=== PATIENT | female | born 1995 | race American Indian/Alaskan Native ===

== ENCOUNTER 2021-07-29 23:13 | Emergency (ER) | payer OTHER ==
[2021-07-29 23:22] VITALS: BP 100/57
[2021-07-30] MEDS ORDERED: traMADol 50 MG TAB PO ONE (02:14)
[2021-07-30] MEDS ORDERED: LIDOCAINE (1%) 10 MG/1 ML VIAL 20 ML MDV INFILTRATI ONE (02:14)
[2021-07-30] MEDS ORDERED: TETANUS,DIPH,PERTUSS(ACELL) VACCINE 0.5 ML SYRINGE IM ONE (02:14)
--- NOTE | 2021-07-30 02:59 | Emergency Department Report ---
ED General Adult HPI - General Chief complaint: Wound/Laceration Stated complaint: FINGER CUT Time Seen by Provider: 07/30/21 02:11 Source: patient Mode of arrival: Ambulatory Limitations: No Limitations - History of Present Illness Initial comments: Patient is a 26-year-old female who presents for laceration to left lateral index finger. Patient states she was attempting to remove received from an avocado and accidentally stabbed her hand with a kitchen knife. Bleeding was controlled by direct pressure applied at home. There is no nerve muscle or tendon damage. There is no numbness paralysis or tingling. Patient drove self to ED patient alert oriented x3 with no acute distress patient denies other injuries. Patient states last tetanus shot 3 years ago. Pain rated as 4/10. Exacerbated by movement and palpation. Relieved by nothing tried. Severity scale (0 -10): 3 - Related Data Previous Rx's Medication Instructions Recorded Last Taken Type traMADoL [Ultram] 50 mg PO Q8HR PRN #9 tablet 07/30/21 Unknown Rx Allergies Allergy/AdvReac Type Severity Reaction Status Date / Time No Known Allergies Allergy Verified 07/30/21 02:43 ED Review of Systems ROS: Stated complaint: FINGER CUT Other details as noted in HPI Constitutional: denies: chills, fever Eyes: denies: eye pain, eye discharge, vision change ENT: denies: ear pain, throat pain Respiratory: denies: cough, shortness of breath, wheezing Cardiovascular: denies: chest pain, palpitations Endocrine: no symptoms reported Gastrointestinal: denies: abdominal pain, nausea, diarrhea Genitourinary: denies: urgency, dysuria, discharge Musculoskeletal: other (Laceration left index finger) Skin: as per HPI, other (Laceration to left index finger medial) Neurological: as per HPI Psychiatric: denies: anxiety, depression Hematological/Lymphatic: denies: easy bleeding, easy bruising ED Past Medical Hx - Medications Home Medications: Home Medications Medication Instructions Recorded Confirmed Last Taken Type traMADoL [Ultram] 50 mg PO Q8HR PRN #9 tablet 07/30/21 Unknown Rx ED Physical Exam - General Limitations: No Limitations General appearance: alert, in no apparent distress - Head Head exam: Present: normocephalic, normal inspection - Eye Eye exam: Present: normal appearance, EOMI Pupils: Present: normal accommodation - ENT ENT exam: Present: mucous membranes moist - Neck Neck exam: Present: normal inspection - Respiratory Respiratory exam: Present: normal lung sounds bilaterally. Absent: wheezes - Cardiovascular Cardiovascular Exam: Present: regular rate, normal rhythm, normal heart sounds. Absent: systolic murmur, diastolic murmur, rubs, gallop - GI/Abdominal GI/Abdominal exam: Present: soft, normal bowel sounds. Absent: distended, tenderness - Rectal Rectal exam: Present: deferred - Extremities Exam Extremities exam: Present: full ROM, normal capillary refill - Expanded Upper Extremity Exam Left Hand Wrist exam: Present: full ROM, tenderness, laceration (Left index finger medial no nerve muscle or tendon damage). Absent: swelling, ecchymosis, deformity, crepidus, dislocation, erythema, amputation, nail avulsion, subungual hematoma Neuro motor exam: Present: wrist extension intact, thumb opposition intact, thumb IP flexion intact, thumb adduction intact, fingers 2-5 abduction intact Neurosensory exam: Present: radial nerve intact - Back Exam Back exam: Present: normal inspection, full ROM. Absent: CVA tenderness (R), CVA tenderness (L) - Neurological Exam Neurological exam: Present: alert, oriented X3, CN II-XII intact, reflexes normal. Absent: motor sensory deficit - Expanded Neurological Exam Expanded Patient oriented to: Present: person, place, time Speech: Present: fluid speech Motor strength exam: RUE: 5, LUE: 5 DTR: bicep (R): 1+, bicep (L): 1+, tricep (R): 1+, tricep (L): 1+ Best Eye Response (Shirley): (4) open spontaneously Best Motor Response (Mumtaz): (6) obeys commands Best Verbal Response (Mumtaz): (5) oriented Mumtaz Total: 15 - Psychiatric Psychiatric exam: Present: normal affect, normal mood - Skin Skin exam: Present: warm, dry, intact, normal color. Absent: rash ED Course Vital Signs 07/29/21 23:15 Temperature 98.9 F Pulse Rate 77 Respiratory 20 Rate Blood Pressure 100/57 [Left] O2 Sat by Pulse 100 Oximetry - Laceration /Wound Repair Left Lateral Proximal Finger Wound Location: upper extremity (Left lateral proximal index finger laceration 1 cm, no nerve muscle or tendon damage and range of motion is intact to direct confrontation. LINE WELDER is less than 3 seconds. All bleeding is controlled.) Wound Length (cm): 1 Wound's Depth, Shape: superficial Wound Explored: clean Irrigated w/ Saline (ccs): 20 Betadine Prep?: Yes Anesthesia: 1% Lidocaine Volume Anesthetic (ccs): 1 Wound Debrided: minimal (None required) Wound Repaired With: sutures Suture Size/Type: 4:0, proline Number of Sutures: 3 Layer Closure?: No Sterile Dressing Applied?: Yes Progress: Left proximal index finger laceration site cleaned and Betadine solution. Anesthesia 1% lidocaine x1 cc. There is no nerve muscle or tendon damage wound irrigated with 20 cc sterile saline. Wound closed with four-point 0 Prolene times 3 sutures. Edges well approximated all bleeding controlled sterile dressings intact. Range of motion remains intact LINE WELDER is less than 3 seconds all distal pulses are intact. Patient tolerated procedure with minimal distress. Patient given wound care instructions including follow-up with primary care doctor in 2 days for wound check. In 7 to 10 days for suture removal. Patient verbalized agreement and understanding of same. ED Medical Decision Making - Medical Decision Making Left index finger laceration see suture repair note. Patient will be DC'd home tetanus is up-to-date. CMS remains intact patient follow-up primary care doctor in 2 days. Patient DC'd home in stable condition at this time. Critical care attestation.: If time is entered above; I have spent that time in minutes in the direct care of this critically ill patient, excluding procedure time. ED Disposition Clinical Impression: Laceration of left index finger Qualifiers: Encounter type: initial encounter Damage to nail status: without damage Foreign body presence: without foreign body Qualified Code(s): S61.211A - Laceration without foreign body of left index finger without damage to nail, initial encounter Disposition: 01 HOME / SELF CARE / HOMELESS Is pt being admited?: No Does the pt Need Aspirin: No Condition: Stable Instructions: Laceration Care, Adult Additional Instructions: Take medications as directed. Follow-up with your doctor in 2 days for wound check in 7 to 10 days for suture removal. Prescriptions: traMADoL [Ultram] 50 mg PO Q8HR PRN #9 tablet PRN Reason: Pain Referrals: APRIL JOHN MD [Staff Physician] - 3-5 Days Forms: Work/School Release Form(ED) Time of Disposition: 03:04
== END 2021-07-30 03:39 | disposition home or self-care (01) ==
LOC: ED 23:13
DX: S61.211A Laceration without foreign body of left index finger without damage to nail, initial encounter (principal); X58.XXXA Exposure to other specified factors, initial encounter; Y93.89 Activity, other specified; Y92.89 Other specified places as the place of occurrence of the external cause; Y99.8 Other external cause status
CPT/HCPCS: 90715; 99282